=== PATIENT | female | born 1985 | race Caucasian/White ===

== ENCOUNTER → 2023-06-16 | Outpatient (CLI) | payer OTHER ==
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
== END | disposition home or self-care (01) ==
LOC: RADMRIMAIN 07:03
PROVIDERS: ATTEND Orthopaedic Surgery
DX: S72.091A Other fracture of head and neck of right femur, initial encounter for closed fracture (principal)

== ENCOUNTER → 2023-08-11 | Outpatient (CLI) | payer OTHER ==
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
== END | disposition home or self-care (01) ==
LOC: RADMRIMAIN 10:51
PROVIDERS: ATTEND Orthopaedic Surgery Orthopaedic Surgery of the Spine
DX: S39.012A Strain of muscle, fascia and tendon of lower back, initial encounter (principal); M25.551 Pain in right hip; M25.451 Effusion, right hip; M54.16 Radiculopathy, lumbar region
CPT/HCPCS: 72148